=== PATIENT | male | born 1980 | race Caucasian/White ===

== ENCOUNTER 2019-05-19 13:40 | Emergency (ER) | payer SELFPAY ==
--- NOTE | 2019-05-19 13:44 | ERPHSYRPT ---
- History of Present Illness Time Seen by Provider: 05/19/19 14:30 Source: patient Exam Limitations: clinical condition Physician History: 39 y/o white male presents with head pain and right hip pain after a fall yesterday. pt admits to crack cocaine use. pt asked if there is a real doctor in the ED. he also would not allow doctor to evaluate him until all his pts rights were read and reviewed with him. Occurred: yesterday Severity: mild Head Injury Location: parietal (left) Method of Injury: fell Loss of Consciousness: unsure Associated Symptoms: denies symptoms Allergies/Adverse Reactions: latex Allergy (Verified 05/19/19 14:16) Home Medications: No Reportable Medications [No Reported Medications] 05/19/19 [History] - Review of Systems Constitutional: No Symptoms Eyes: No Symptoms Ears, Nose, & Throat: No Symptoms Respiratory: No Symptoms Cardiac: No Symptoms Abdominal/Gastrointestinal: No Symptoms Genitourinary Symptoms: No Symptoms Musculoskeletal: Fall, Injury (right pelvis) Skin: No Symptoms Neurological: No Symptoms Psychological: No Symptoms Endocrine: No Symptoms Hematologic/Lymphatic: No Symptoms Immunological/Allergic: No Symptoms All Other Systems: Reviewed and Negative - Past Medical History Neurological History: No Pertinent History ENT History: No Pertinent History Cardiac History: No Pertinent History Respiratory History: No Pertinent History Endocrine Medical History: No Pertinent History Musculoskeletal History: No Pertinent History GI Medical History: No Pertinent History History: No Pertinent History Psycho-Social History: No Pertinent History Male Reproductive Disorders: No Pertinent History - Past Surgical History Neuro Surgical History: No Pertinent History Cardiac: No Pertinent History Respiratory: No Pertinent History Gastrointestinal: No Pertinent History Genitourinary: No Pertinent History Musculoskeletal: No Pertinent History Male Surgical History: No Pertinent History - Nursing Vital Signs Nursing Vital Signs: Initial Vital Signs Pulse Rate 92 H 05/19/19 13:54 Respiratory Rate 16 05/19/19 13:54 Blood Pressure 116/80 05/19/19 13:54 O2 Sat by Pulse Oximetry 92 L 05/19/19 13:54 Pain Scale Pain Intensity 0 - Edgar Coma Score Best Eye Response ([place]): (4) open spontaneously Best Verbal Response ([place]): (5) oriented Best Motor Response ([place]gar): (6) obeys commands [place] Total: 15 - Physical Exam General Appearance: no apparent distress, alert, anxiety Head Injury: no evidence of injury Eye Exam: bilateral eye: normal inspection, PERRL, EOMI ENT Exam: airway nml, nml ext.inspection, hearing grossly normal Neck Exam: supple, trachea midline, full range of motion, normal alignment Cardiovascular/Respiratory Exam: chest non-tender Gastrointestinal/Abdominal Exam: non tender Rectal Exam: not done Back Exam: normal inspection, normal range of motion, No CVA tenderness, No vertebral tenderness Extremity Exam: non-tender, normal range of motion, normal inspection, pelvis stable (c/o mild right pelvic tenderness) Mental Status Exam: alert, oriented x 3, cooperative, 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 pelvis xray-no acute process Counseled pt/family regarding: diagnosis, need for follow-up, rad results - Departure Departure Disposition: Home Clinical Impression: Fall, Contusion Condition: Stable Critical Care Time: No Additional Instructions: ice pack to tender areas 3 times daily for 2 days. tylenol and ibuprofen for pain. follow up with primary doctor for evaluation of persistent symptoms
[2019-05-19 14:16] VITALS: BP 116/80
--- NOTE | 2019-05-19 15:03 | XRAY ---
Indication: Pain following fall. Comparison: None Single AP pelvis obtained. No bony, articular, or soft tissue abnormalities.
--- NOTE | 2019-05-19 15:05 | XRAY ---
Indication: Pain following fall. Multiple contiguous axial images obtained through the head without contrast. Comparison: None Normal appearing brain parenchyma, ventricles, and bony calvarium. Visualized paranasal sinuses and mastoid air cells are clear. Impression: Normal CT head without contrast exam.
[2019-05-19 15:13] VITALS: PULSE 68; O2SAT 96
== END 2019-05-19 15:55 | disposition home or self-care (01) ==
LOC: ED 13:40
DX: S00.93XA Contusion of unspecified part of head, initial encounter (principal); W19.XXXA Unspecified fall, initial encounter; R51 Headache; M25.551 Pain in right hip
CPT/HCPCS: 70450; 72170; 99284